=== PATIENT | female | born 1985 | race Two or more races ===

== ENCOUNTER 2019-06-06 21:27 | Emergency (ER) | payer OTHER ==
[~2019-06-06] VITALS: Ht 170.2 cm; Wt 71.7 kg
--- NOTE | 2019-06-06 21:53 | NUR ---
C/O "SICK FOR 2 DAYS". COUGH AND CONGESTION. "I COUGH UP BLOOD AND WHEN I BLEW MY NOSE IT HAD BLOOD TOO". SORE THROAT
--- NOTE | 2019-06-06 23:08 | NUR ---
Patient discharged to home in stable condition. rX AND Written and verbal after care instructions given. Patient verbalizes understanding of instruction.
[2019-06-06 23:54] VITALS: BP 106/66
== END 2019-06-06 23:08 | disposition home or self-care (01) ==
LOC: ER 21:30
DX: J06.9 Acute upper respiratory infection, unspecified (principal)
CPT/HCPCS: 71045-TC

== ENCOUNTER 2019-09-09 02:30 | Emergency (ER) | payer OTHER ==
[~2019-09-09] VITALS: Ht 170.2 cm; Wt 71.7 kg
[2019-09-09 02:36] VITALS: BP 136/62
--- NOTE | 2019-09-09 02:50 | NUR ---
Patient discharged to home in stable condition. Written and verbal after care instructions given. Patient verbalizes understanding of instruction.
== END 2019-09-09 03:20 | disposition home or self-care (01) ==
LOC: ER 02:35
DX: S30.861A Insect bite (nonvenomous) of abdominal wall, initial encounter (principal); W57.XXXA Bitten or stung by nonvenomous insect and other nonvenomous arthropods, initial encounter; Y93.89 Activity, other specified; Y92.89 Other specified places as the place of occurrence of the external cause; Y99.8 Other external cause status

== ENCOUNTER 2021-10-16 07:34 | Emergency (ER) | payer OTHER ==
[~2021-10-16] VITALS: Ht 170.2 cm; Wt 71.7 kg
[2021-10-16] MEDS ORDERED: KETOROLAC TROMETHAMINE INJ 30 MG/ML VIAL ONE ×3 (08:24→08:25)
--- NOTE | 2021-10-16 08:25 | NUR ---
Recieved pt 36 yrs female walkin in from home c/o colin back pain started at 3 AM no weekess no pain with urination on hx trama seen by DR. Cruz pt dineses posible of prgnancy toradol 30mg iv given
[2021-10-16] MEDS ORDERED: KETOROLAC TROMETHAMINE INJ 30 MG/ML VIAL IV ONE (08:30)
[2021-10-16] MEDS ORDERED: IV NS 0.9% 1,000 ML BAG IV ONE (08:30)
--- NOTE | 2021-10-16 08:30 | NUR ---
blood drow and sent to lab [facility] SENT TO LAB
[2021-10-16 08:48] LABS: BASOPHILS % (AUTO) 0.3 % (0.0-2.0); EOSINOPHILS % (AUTO) 0.5 % (0.0-6.0); HEMATOCRIT 39 % (33-45); HEMOGLOBIN 13.4 g/dL (11.5-14.8); LYMPHOCYTES # (AUTO) 0.3 K/uL (0.8-4.8); LYMPHOCYTES % (AUTO) 5.5 % (20.0-44.0); MEAN CORPUSCULAR HGB CONC 34 g/dl (31.0-36.0); MEAN CORPUSCULAR VOLUME 90 fL (82-100); MONOCYTES # (AUTO) 0.6 K/uL (0.1-1.30); MONOCYTES % (AUTO) 10.7 % (2.0-12.0); PLATELET COUNT (AUTO) 136 K/uL (150-450); RED BLOOD CELL COUNT(AUTO) 4.38 MIL/uL (4.0-5.2); WHITE BLOOD COUNT (AUTO) 6.1 K/uL (4.3-11.0)
[2021-10-16 08:52] LABS: BILIRUBIN,URINE NEGATIVE (NEGATIVE); COLOR,URINE YELLOW (YELLOW); LEUKOCYTE ESTERASE ,URINE NEGATIVE (NEGATIVE); NITRITE, URINE NEGATIVE (NEGATIVE); PROTEIN,URINE NEGATIVE (NEGATIVE); UGLUCOSE NEGATIVE (NEGATIVE); UROBILINOGEN,URINE 0.2 EU/dL (0.2)
--- NOTE | 2021-10-16 09:00 | NUR ---
INFLUNZ SWAB sent to lab
[2021-10-16 09:06] LABS: CALCIUM, SERUM 8.8 mg/dL (8.5-10.1); CREATININE 0.9 mg/dL (0.6-1.3); POTASSIUM 3.5 mmol/L (3.5-5.1)
[2021-10-16 09:08] LABS: BACTERIA,URINE None seen /HPF (None Seen); RBC,URINE 0-2 /HPF (0-2); SQUAMOUS EPITHELIAL CELL,UR Few /HPF (None Seen); WBC,URINE NONE SEEN /HPF (0-3)
[2021-10-16 09:12] LABS: ALBUMIN 4.4 g/dL (3.4-5.0); BILIRUBIN,DIRECT 0.1 mg/dL (0.0-0.2); BILIRUBIN,TOTAL 0.2 mg/dL (0.2-1.0); TOTAL PROTEIN, SERUM 7.6 g/dL (6.4-8.2)
[2021-10-16] MEDS ORDERED: HYDR-3972 PO (10:05)
[2021-10-16] MEDS ORDERED: IBUP-1957 PO (10:05)
[2021-10-16] MEDS ORDERED: HYDROCODONE/APAP 5/325MG TABLET ONE (10:08)
--- NOTE | 2021-10-16 10:19 | NUR ---
D/C instraction given to pt by DR. GEE LAB RESULT d/c instraction given to pt fully and verblized understood d/c home with fallow up care
[2021-10-16 10:26] VITALS: BP 107/83
[2021-10-16] MEDS ORDERED: HYDROCODONE/APAP 5/325MG TABLET PO ONE (10:30)
== END 2021-10-16 10:27 | disposition home or self-care (01) ==
LOC: ER 07:36
DX: M79.10 Myalgia, unspecified site (principal); B34.9 Viral infection, unspecified
CPT/HCPCS: 36415; 71045; 80048; 80076; 81001; 83690; 85025; 87804 ×2; 96361; 96374; 99284; J1885